=== PATIENT | male | born 1930 ===

== ENCOUNTER 2017-03-19 19:03 | Inpatient (IN) | payer MEDICARE, OTHER ==
[~2017-03-19] VITALS: Ht 170.2 cm; Wt 80.3 kg
[2017-03-19] MEDS ORDERED: LEVETIRACETAM 750 MG (19:38)
--- NOTE | 2017-03-19 20:08 | NUR ---
Patient in bed, no acute distress noted. All patient needs attended and met. call light is within reach.
--- NOTE | 2017-03-19 20:15 | NUR ---
PT PRESENTS TO ED W/ REPORTED AMS, HYPERSOMNOLENCE, AND POOR APPETITE X3 DAYS. PT FAMILY AT BEDSIDE
--- NOTE | 2017-03-19 20:24 | NUR ---
XRAY AT PT BEDSIDE
--- NOTE | 2017-03-19 20:29 | NUR ---
LAB AT PT BEDSIDE
[2017-03-19 20:53] LABS: BASOPHILS % (AUTO) 0.2 % (0.0-2.0); HEMATOCRIT 38.1 % (36.7-47.1); HEMOGLOBIN 12.9 g/dL (12.5-16.3); LYMPHOCYTES # (AUTO) 0.7 K/uL (20.0-40.0); LYMPHOCYTES % (AUTO) 7.5 % (20.5-51.5); MEAN CORPUSCULAR HEMOGLOBIN 30.7 uug (23.8-33.4); MEAN CORPUSCULAR HGB CONC 34 g/dL (32.5-36.3); MEAN CORPUSCULAR VOLUME 90.6 fL (73.0-96.2); MONOCYTES # (AUTO) 0.6 K/uL (2.0-10.0); MONOCYTES % (AUTO) 6.8 % (0.0-11.0); NEUTROPHILS # (AUTO) 8.1 K/uL (1.8-8.9); NEUTROPHILS % (AUTO) 85.5 % (38.5-71.5); PLATELET COUNT (AUTO) 148 K/uL (152-348); WHITE BLOOD COUNT (AUTO) 9.4 K/uL (3.6-10.2)
--- NOTE | 2017-03-19 20:53 | NUR ---
Patient taken to CT via gurney. No acute distress noted.
--- NOTE | 2017-03-19 20:55 | NUR ---
PT OUT OF ROOM FOR CT
[2017-03-19 20:58] LABS: CARBON DIOXIDE 30 mmol/L (21-32); CHLORIDE 103 mmol/L (98-107); CREATININE 2.1 mg/dL (0.6-1.3); GLUCOSE 109 mg/dL (74-106); POTASSIUM 4.3 mmol/L (3.5-5.1); UREA NITROGEN, BLOOD 26 mg/dL (7-18)
[2017-03-19 21:04] LABS: ALANINE AMINOTRANSFERASE 17 U/L (16-63); ALKALINE PHOSPHATASE 96 U/L (50-136); ASPARTATE AMINOTRANSFERASE 15 U/L (15-37); BILIRUBIN,DIRECT 0.2 mg/dL (0.0-0.2); BILIRUBIN,TOTAL 0.8 mg/dL (0.2-1.0); TOTAL PROTEIN, SERUM 6.8 g/dL (6.4-8.2)
[2017-03-19 21:12] LABS: THYROID STIMULATING HORMONE 0.822 mIU/mL (0.358-3.740)
--- NOTE | 2017-03-19 21:20 | NUR ---
Patient back from CT. No acute distress noted.
--- NOTE | 2017-03-19 21:50 | NUR ---
AT PT BEDSIDE
--- NOTE | 2017-03-19 21:57 | NUR ---
Belongings list complete. Son at bedside. Per ER MD, patient will be admitted peding completion of workup/evaluation
--- NOTE | 2017-03-19 22:05 | NUR ---
[facility] PAGED FOR CINDA DAWKINS. WAS TOLD TIFFANIE WILL RETURN CALL
--- NOTE | 2017-03-19 22:11 | NUR ---
ON PHONE W/ EPIC
[2017-03-19] MEDS ORDERED: ACETAMINOPHEN 325 MG TABLET PO PRN (22:15)
[2017-03-19] MEDS ORDERED: ONDANSETRON 4 MG/2 ML VIAL IV PRN (22:15)
[2017-03-19] MEDS ORDERED: MAGNESIUM HYDROXIDE 30 ML LIQUID UDC PO PRN (22:15)
[2017-03-19] MEDS ORDERED: HYDROCODONE/APAP 5-325MG TABLET PO PRN (22:15)
[2017-03-19] MEDS ORDERED: LIDOCAINE 2% (UROJET) 10 ML JELLY MM ONE ×2 (22:15→22:32)
[2017-03-19] MEDS ORDERED: Z GUARD REMEDY PASTE 57 GM TUBE TOP PRN (22:15)
--- NOTE | 2017-03-19 22:38 | NUR ---
CALLED TO GIVE REPORT. WAS TOLD RN WOULD CALL BACK
--- NOTE | 2017-03-19 22:52 | NUR ---
family contact information : Daughter- Fina [phone] Son- Michele [phone]
--- NOTE | 2017-03-19 22:55 | NUR ---
REPORT GIVEN TO AISHA GERARDO
[2017-03-19 23:20] VITALS: BP 107/43
--- NOTE | 2017-03-19 23:20 | NUR ---
Pt. admitted to [facility], under care of Dr. COLLIER. Belongs List completed
--- NOTE | 2017-03-19 23:25 | NUR ---
admit new patient to room 222, patient alert,oriented x 2, forgetful,hill cath intact drainage slightly pinkish 1100 ml out put, patient resting well, no acute distress,c/o hungry ,sandwich given,aspiration precautions observe, no swallow difficulty noted.
[2017-03-20] MEDS: IV NS 1000 ML 1,000 ML IV PRN (00:59)
[2017-03-20 04:00] VITALS: BP 98/44
--- NOTE | 2017-03-20 06:34 | NUR ---
PATIENT SLEEP WELL THROUGH THE NIGHT,BED ALARM ON SAFETY PRECAUTIONS MAINTAIN,STILL SLIGHTLY BLOODY URINE,DRAINAGE FREELY.ADEQUATE OUT PUT.
[2017-03-20 08:39] LABS: BASOPHILS % (AUTO) 0.1 % (0.0-2.0); EOSINOPHILS % (AUTO) 0.3 % (0.0-7.0); HEMATOCRIT 39.6 % (36.7-47.1); HEMOGLOBIN 13.5 g/dL (12.5-16.3); MEAN CORPUSCULAR HGB CONC 34 g/dL (32.5-36.3); MEAN CORPUSCULAR VOLUME 90.8 fL (73.0-96.2); MONOCYTES # (AUTO) 0.7 K/uL (2.0-10.0); MONOCYTES % (AUTO) 7.5 % (0.0-11.0); NEUTROPHILS # (AUTO) 7.1 K/uL (1.8-8.9); NEUTROPHILS % (AUTO) 81.1 % (38.5-71.5); PLATELET COUNT (AUTO) 137 K/uL (152-348); RED BLOOD CELL COUNT(AUTO) 4.37 MIL/uL (4.06-5.63); WHITE BLOOD COUNT (AUTO) 8.8 K/uL (3.6-10.2)
[2017-03-20 09:25] LABS: CARBON DIOXIDE 27 mmol/L (21-32); CHLORIDE 103 mmol/L (98-107); CREATININE 2.1 mg/dL (0.6-1.3); GLUCOSE 86 mg/dL (74-106); PHOSPHOROUS 2.8 mg/dL (2.5-4.9); POTASSIUM 3.3 mmol/L (3.5-5.1); UREA NITROGEN, BLOOD 26 mg/dL (7-18)
[2017-03-20] MEDS ORDERED: POTASSIUM CHLORIDE 20 MEQ TAB.PRT.SR PO ONE (10:45)
[2017-03-20 11:08] VITALS: BP 121/59
[2017-03-20 15:16] VITALS: BP 125/56
--- NOTE | 2017-03-20 19:15 | NUR ---
PT. SUDDENLY VERY AGITATED. IM=578/112 P=94 RESP=24. STATES DOES NOT KNOW WHATS WRONG..ACCU CHEK RE-DONE =175. PT. VOMITED SMALL AMT. BILE. REG. INSULIN COVERAGE NOT GIVEN. DR. PADGETT NOTIFIED OF ABOVE---NEW ORDER--ATIVAN GIVEN PER ORDER. REPORT TO NEXT SHIFT.
[2017-03-20 20:00] VITALS: BP 126/50
--- NOTE | 2017-03-20 20:00 | NUR ---
patient awake,alert, oriented x4, able to made needs known, son at bedside, bp 126/50, pulse 77,denies pain,ambulate well, Carreno cath drainage bloody urine,no clots noted, plan of care discuss with son, verbalize understanding.patient was seen by . for urology consult.
[2017-03-21 04:23] LABS: *BLOOD, URINE 3+ (NEGATIVE); *CLARITY,URINE CLOUDY (CLEAR); *COLOR,URINE RED (YELLOW); *KETONES,URINE TRACE (NEGATIVE); *UROBILINOGEN,URINE 0.2 E.U./dl (NORMAL); LEUKOCYTE ESTERASE ,URINE NEGATIVE (NEGATIVE); NITRITE, URINE NEGATIVE (NEGATIVE); PH,URINE 5.5 (5.0-8.0); UGLUCOSE NEGATIVE (NEGATIVE)
[2017-03-21 04:50] LABS: *PROTEIN,URINE 3+ (NEGATIVE)
[2017-03-21 04:51] LABS: *BILIRUBIN,URIN NEGATIVE (NEGATIVE)
[2017-03-21 04:53] LABS: BACTERIA,URINE NONE SEEN /HPF (NONE SEEN); RBC,URINE TNTC /HPF (0-3); SQUAMOUS EPITHELIAL CELL,UR NONE SEEN /HPF (NONE SEEN)
[2017-03-21] MEDS: IV NS 1000 ML 1,000 ML IV PRN (05:57)
[2017-03-21] MEDS: PANTOPRAZOLE SODIUM 40 MG TABLET.DR PO SCH (05:57)
[2017-03-21 06:00] VITALS: BP 136/64
[2017-03-21 07:07] LABS: BASOPHILS % (AUTO) 0.2 % (0.0-2.0); EOSINOPHILS # (AUTO) 0.1 K/uL (0.0-0.7); EOSINOPHILS % (AUTO) 0.7 % (0.0-7.0); HEMATOCRIT 42.1 % (36.7-47.1); HEMOGLOBIN 14.1 g/dL (12.5-16.3); LYMPHOCYTES # (AUTO) 0.7 K/uL (20.0-40.0); LYMPHOCYTES % (AUTO) 7.4 % (20.5-51.5); MEAN CORPUSCULAR HEMOGLOBIN 30.7 uug (23.8-33.4); MEAN CORPUSCULAR HGB CONC 34 g/dL (32.5-36.3); MEAN CORPUSCULAR VOLUME 91.6 fL (73.0-96.2); MONOCYTES # (AUTO) 0.7 K/uL (2.0-10.0); MONOCYTES % (AUTO) 7.9 % (0.0-11.0); NEUTROPHILS # (AUTO) 7.4 K/uL (1.8-8.9); NEUTROPHILS % (AUTO) 83.8 % (38.5-71.5); PLATELET COUNT (AUTO) 128 K/uL (152-348); WHITE BLOOD COUNT (AUTO) 8.9 K/uL (3.6-10.2)
--- NOTE | 2017-03-21 07:09 | NUR ---
RECEIVED PATIENT ASLEEP, LYING ON HIS BED ON A SEMI- BAEZ'S POSITION. EASILY AROUSED WITH NO SOB OR MOANING NOTED. WILL CONT TO MONITOR.
[2017-03-21 07:35] LABS: ALANINE AMINOTRANSFERASE 20 U/L (16-63); ALKALINE PHOSPHATASE 96 U/L (50-136); ASPARTATE AMINOTRANSFERASE 28 U/L (15-37); BILIRUBIN,TOTAL 0.8 mg/dL (0.2-1.0); CARBON DIOXIDE 29 mmol/L (21-32); CHLORIDE 105 mmol/L (98-107); CHOLESTEROL 169 mg/dL (<200); CREATININE 1.7 mg/dL (0.6-1.3); GLUCOSE 95 mg/dL (74-106); HDL CHOLESTEROL 46 mg/dL (40-60); MAGNESIUM 1.9 mg/dL (1.8-2.4); PHOSPHOROUS 2.7 mg/dL (2.5-4.9); POTASSIUM 4.3 mmol/L (3.5-5.1); TOTAL PROTEIN, SERUM 7.5 g/dL (6.4-8.2); TRIGLYCERIDES 68 MG/DL (30-150); UREA NITROGEN, BLOOD 24 mg/dL (7-18)
[2017-03-21] MEDS: ALFUZOSIN HCL 10 MG TAB.SR.24H PO SCH (09:00)
[2017-03-21 11:53] VITALS: BP 122/60
--- NOTE | 2017-03-21 12:00 | NUR ---
PATIENT AWAKE, ALERT AND ORIENTED WITH HIS FAMILY MEMBER AT BEDSIDE. NO SOB DISTRESS OR DISCOMFORTS. WILL CONTINUE TO MONITOR.
--- NOTE | 2017-03-21 15:00 | NUR ---
PATIENT AWAKE, ALERT AND ORIENTED, SITTING ON HIS CHAIR AT HIS BESIDE WITH NO SOB, DISTRESS, PATIENT DENIES ANY PAIN AT THIS TIME. ALL NEEDS WERE ATTENDED AND ANTICIPATED. ENCOURAGED PATIENT TO USE CALL LIGHT WHENEVER ASSISTANCE IS NEEDED FOR HIS SAFETY.
[2017-03-21 15:52] VITALS: BP 100/44
[2017-03-21] MEDS ORDERED: LIDOCAINE 2% (UROJET) 10 ML JELLY MM PRN (17:00)
--- NOTE | 2017-03-21 17:00 | NUR ---
PATIENT WAS SEEN AND EXAMINED BY DR. VILLA (UROLOGIST) , CHANGED PATIENT'S CATHETER TO 3 WAY F/C TO CONTINUOUSLY IRRIGATE THE BLADDER. ALSO MD HAS NEW ORDERS TO ENCOURAGE PATIENT PO LIQUIDS, CBC CHEM 7 IN AM 03/22/17. ORDERS WERE NOTED AND CARRIED OUT.
--- NOTE | 2017-03-21 18:27 | NUR ---
PATIENT AWAKE, ALERT AND ORIENTED, LYING ON BED ON A SEMI- BAEZ'S POSITION. DENIES PAIN OR DISCOMFORTS AT THIS TIME. NOTED [address] MCKENZIE CATHETER INSERTED BY DR. VILLA IS INTACT, PATENT HANG ON THE BED FRAME. STILL ON CONTINUOUS IRRIGATION. PATIENT IS TOLERATING WELL THE PROCEDURE. WILL CONTINUE TO CLOSELY MONITOR. CALL LIGHT WITHIN REACH.
[2017-03-21] MEDS ORDERED: IV D5W-0.45% NS 1000 ML BAG IV PRN (19:00)
[2017-03-21 21:00] VITALS: BP 121/54
[2017-03-21] MEDS: IV D5 1/2 NS 1000 ML 1,000 ML IV PRN (21:11)
[2017-03-21] MEDS: LEVETIRACETAM 250 MG TABLET PO SCH (21:11)
[2017-03-22 04:00] VITALS: BP 117/59
[2017-03-22 05:49] VITALS: BP 117/59
[2017-03-22] MEDS: PANTOPRAZOLE SODIUM 40 MG TABLET.DR PO SCH (06:05)
[2017-03-22] MEDS: IV D5 1/2 NS 1000 ML 1,000 ML IV PRN ×2 (06:06→17:16)
[2017-03-22 07:06] LABS: BASOPHILS % (AUTO) 0.2 % (0.0-2.0); EOSINOPHILS # (AUTO) 0.3 K/uL (0.0-0.7); EOSINOPHILS % (AUTO) 3.9 % (0.0-7.0); HEMATOCRIT 33.4 % (36.7-47.1); HEMOGLOBIN 11.3 g/dL (12.5-16.3); LYMPHOCYTES # (AUTO) 0.8 K/uL (20.0-40.0); LYMPHOCYTES % (AUTO) 12.2 % (20.5-51.5); MEAN CORPUSCULAR HEMOGLOBIN 30.9 uug (23.8-33.4); MEAN CORPUSCULAR HGB CONC 34 g/dL (32.5-36.3); MEAN CORPUSCULAR VOLUME 91.2 fL (73.0-96.2); MONOCYTES # (AUTO) 0.6 K/uL (2.0-10.0); MONOCYTES % (AUTO) 9.5 % (0.0-11.0); NEUTROPHILS # (AUTO) 4.7 K/uL (1.8-8.9); NEUTROPHILS % (AUTO) 74.2 % (38.5-71.5); PLATELET COUNT (AUTO) 96 K/uL (152-348); RED BLOOD CELL COUNT(AUTO) 3.66 MIL/uL (4.06-5.63); WHITE BLOOD COUNT (AUTO) 6.4 K/uL (3.6-10.2)
[2017-03-22 07:09] LABS: ALANINE AMINOTRANSFERASE 17 U/L (16-63); ALKALINE PHOSPHATASE 69 U/L (50-136); ASPARTATE AMINOTRANSFERASE 19 U/L (15-37); BILIRUBIN,TOTAL 0.7 mg/dL (0.2-1.0); CHLORIDE 107 mmol/L (98-107); CREATININE 1.7 mg/dL (0.6-1.3); GLUCOSE 111 mg/dL (74-106); MAGNESIUM 1.7 mg/dL (1.8-2.4); PHOSPHOROUS 2.9 mg/dL (2.5-4.9); POTASSIUM 3.5 mmol/L (3.5-5.1); TOTAL PROTEIN, SERUM 5.6 g/dL (6.4-8.2); UREA NITROGEN, BLOOD 23 mg/dL (7-18)
[2017-03-22 07:20] LABS: CARBON DIOXIDE 28 mmol/L (21-32)
[2017-03-22 08:06] LABS: *TESTOSTERONE, SERUM 408 ng/dL (264-916)
[2017-03-22] MEDS: LEVETIRACETAM 250 MG TABLET PO SCH ×2 (08:14→20:25)
[2017-03-22] MEDS: ALFUZOSIN HCL 10 MG TAB.SR.24H PO SCH (08:14)
[2017-03-22] MEDS ORDERED: MAGNESIUM SULFATE/D5W 100 ML IV SCH (09:15)
[2017-03-22 11:04] LABS: NEUTROPHILS % (MANUAL) 0 % (42-75)
[2017-03-22 12:04] VITALS: BP 105/49
--- NOTE | 2017-03-22 13:30 | NUR ---
DR. VILLA, HUNG 2L OF STERILE WATER TO IRRIGATE PT. DOCTOR VERBALIZES TO CONTINUE IRRIGATION THROUGH OUT THE DAY.
--- NOTE | 2017-03-22 14:23 | NUR ---
PT AOX4, PT REFUSES FLU VACCINE AT THIS TIME. PT REQUESTS TO HAVE FLU SHOT AT D/C.
[2017-03-22 16:00] VITALS: BP 132/49
[2017-03-22] MEDS: CEFTRIAXONE 1 G in IV DEXTROSE 5% 50 ML IV SCH (17:38)
--- NOTE | 2017-03-22 17:51 | NUR ---
PT OBSERVED EATING DINNER WITH SON AT BEDSIDE. PT IS AOX4, CALM, COOPERATIVE, BED AT LOWEST LOCKED POSITION. PT ON SEIZURE PRECAUTIONS, SIDE RAILS PADDED FOR SAFETY. PT PLAN OF CARE IS TO CONTINUE IRRIGATION OF THE BLADDER. PT GIVEN ROCEPHIN PRESCRIBED BY DOCTOR.
--- NOTE | 2017-03-22 18:19 | NUR ---
PT BLADDER WAS IRRIGATED WITH 700ML OF STERILE WATER.
[2017-03-22 19:00] VITALS: BP 120/57
--- NOTE | 2017-03-22 20:00 | NUR ---
RECEIVED PT AWAKE IN BED, HE DENIES ANY PAIN OR DISCOMFORT. PT HAS 3 WAY F/C WITH CONTINUOUS IRRIGATION OF BLADDER, DRAINAGE IS BLOOD TINGED AND PINK IN COLOR. CALL LIGHT WITHIN PT'S REACH, WILL CONTINUE TO MONITOR PT
--- NOTE | 2017-03-23 02:15 | NUR ---
REPLACED IRRIGATION SOLUTION, ONE LITRE BAG OF NS HUNG ORDERED. NO SIGNIFICANT CHANGES IN STATUS AT PRESENT, PT CONTINUES TO SLEEP WITH S/S OF PAIN OR DISTRESS
[2017-03-23 04:00] VITALS: BP 133/52
[2017-03-23] MEDS: PANTOPRAZOLE SODIUM 40 MG TABLET.DR PO SCH (06:21)
[2017-03-23] MEDS: IV D5 1/2 NS 1000 ML 1,000 ML IV PRN ×2 (06:21→17:32)
[2017-03-23 06:54] LABS: BASOPHILS % (AUTO) 0.3 % (0.0-2.0); EOSINOPHILS # (AUTO) 0.3 K/uL (0.0-0.7); EOSINOPHILS % (AUTO) 3.4 % (0.0-7.0); HEMATOCRIT 34.7 % (36.7-47.1); HEMOGLOBIN 11.6 g/dL (12.5-16.3); LYMPHOCYTES # (AUTO) 0.7 K/uL (20.0-40.0); LYMPHOCYTES % (AUTO) 9.3 % (20.5-51.5); MEAN CORPUSCULAR HEMOGLOBIN 30.4 uug (23.8-33.4); MEAN CORPUSCULAR HGB CONC 34 g/dL (32.5-36.3); MEAN CORPUSCULAR VOLUME 90.8 fL (73.0-96.2); MONOCYTES # (AUTO) 0.7 K/uL (2.0-10.0); MONOCYTES % (AUTO) 9.2 % (0.0-11.0); NEUTROPHILS % (AUTO) 77.8 % (38.5-71.5); PLATELET COUNT (AUTO) 103 K/uL (152-348); RED BLOOD CELL COUNT(AUTO) 3.82 MIL/uL (4.06-5.63); WHITE BLOOD COUNT (AUTO) 7.7 K/uL (3.6-10.2)
[2017-03-23 07:14] LABS: ALANINE AMINOTRANSFERASE 74 U/L (16-63); ALKALINE PHOSPHATASE 74 U/L (50-136); ASPARTATE AMINOTRANSFERASE 50 U/L (15-37); BILIRUBIN,TOTAL 0.5 mg/dL (0.2-1.0); CARBON DIOXIDE 29 mmol/L (21-32); CHLORIDE 108 mmol/L (98-107); CREATININE 1.5 mg/dL (0.6-1.3); GLUCOSE 103 mg/dL (74-106); MAGNESIUM 1.8 mg/dL (1.8-2.4); PHOSPHOROUS 2.8 mg/dL (2.5-4.9); POTASSIUM 3.6 mmol/L (3.5-5.1); TOTAL PROTEIN, SERUM 5.7 g/dL (6.4-8.2); UREA NITROGEN, BLOOD 18 mg/dL (7-18)
[2017-03-23 07:47] LABS: IRON, SERUM 13 ug/dL (50-175)
[2017-03-23] MEDS: ALFUZOSIN HCL 10 MG TAB.SR.24H PO SCH (08:15)
[2017-03-23] MEDS: LEVETIRACETAM 250 MG TABLET PO SCH ×2 (08:15→20:58)
[2017-03-23] MEDS ORDERED: INFLUENZA VACCINE 2017-2018 0.5 ML DISP.SYRIN IM ONE (09:00)
--- NOTE | 2017-03-23 09:31 | NUR ---
2 L STERILE WATER FOR BLADDER IRRIGATION HUNG, PRESCRIBED BY . PT MCKENZIE CATHETER OUTPUT IS 825ML AT THIS TIME.
[2017-03-23] MEDS: FERROUS SULFATE 325 MG TABEC PO SCH ×2 (10:39→20:58)
[2017-03-23 11:30] VITALS: BP 113/53
--- NOTE | 2017-03-23 13:15 | NUR ---
2 L STERILE WATER FOR IRRIGATION HUNG PRESCRIBED BY .
[2017-03-23 15:20] VITALS: BP_SYST 109; BP_SYST 113; BP_DIAS 53; BP_DIAS 54
[2017-03-23] MEDS: CEFTRIAXONE 1 G in IV DEXTROSE 5% 50 ML IV SCH (16:12)
[2017-03-23] MEDS: SULFAMETH/TRIMETH 800/160 MG TABLET PO SCH (16:21)
--- NOTE | 2017-03-23 18:20 | NUR ---
PT IS RESTING IN ROOM SITTING IN A CHAIR CALM, DOING A CROSS WORD PUZZLE. 2L OF STERILE WATER FOR IRRIGATION WAS HUNG. TOTAL VOLUME OF IRRIGATION OF NOW IS 4L. PT URINE OUTPUT IS LIGHT PINK AND MARGI IN COLOR. VISITED PT AND ASSESSED HIM. PT IV INTACT.
[2017-03-23 20:00] VITALS: BP 113/53
--- NOTE | 2017-03-23 20:00 | NUR ---
1L of sterile water hung for irrigation. Emptied catheter which has 2200ml of output.
[2017-03-24] MEDS: IV D5 1/2 NS 1000 ML 1,000 ML IV PRN (02:44)
[2017-03-24 04:00] VITALS: BP 107/53
[2017-03-24] MEDS: PANTOPRAZOLE SODIUM 40 MG TABLET.DR PO SCH (06:04)
--- NOTE | 2017-03-24 07:44 | NUR ---
RECEIVED CLIENT IN BED AWAKE, ALERT AND ORIENTED TIMES THREE, CLIENT IS IN A HIGH FOWLERS POSITION. NO APPARENT SIGNS AND SYMPTOMS OF SOB, PAIN, DISTRESS OR DISCOMFORT. STERILE WATER FOR IRRIGATION MCC 1000ML WAS CHANGED.
[2017-03-24 08:31] LABS: BASOPHILS % (AUTO) 0.2 % (0.0-2.0); EOSINOPHILS # (AUTO) 0.2 K/uL (0.0-0.7); EOSINOPHILS % (AUTO) 3.7 % (0.0-7.0); HEMOGLOBIN 11.9 g/dL (12.5-16.3); LYMPHOCYTES # (AUTO) 0.7 K/uL (20.0-40.0); LYMPHOCYTES % (AUTO) 11.9 % (20.5-51.5); MEAN CORPUSCULAR HEMOGLOBIN 30.9 uug (23.8-33.4); MEAN CORPUSCULAR HGB CONC 34 g/dL (32.5-36.3); MEAN CORPUSCULAR VOLUME 90.6 fL (73.0-96.2); MONOCYTES # (AUTO) 0.6 K/uL (2.0-10.0); MONOCYTES % (AUTO) 9.3 % (0.0-11.0); NEUTROPHILS # (AUTO) 4.7 K/uL (1.8-8.9); NEUTROPHILS % (AUTO) 74.9 % (38.5-71.5); PLATELET COUNT (AUTO) 104 K/uL (152-348); RED BLOOD CELL COUNT(AUTO) 3.86 MIL/uL (4.06-5.63); WHITE BLOOD COUNT (AUTO) 6.3 K/uL (3.6-10.2)
[2017-03-24 08:42] LABS: ALANINE AMINOTRANSFERASE 55 U/L (16-63); ALKALINE PHOSPHATASE 80 U/L (50-136); ASPARTATE AMINOTRANSFERASE 24 U/L (15-37); BILIRUBIN,TOTAL 0.5 mg/dL (0.2-1.0); CARBON DIOXIDE 28 mmol/L (21-32); CHLORIDE 108 mmol/L (98-107); CREATININE 1.6 mg/dL (0.6-1.3); GLUCOSE 103 mg/dL (74-106); MAGNESIUM 1.6 mg/dL (1.8-2.4); PHOSPHOROUS 2.9 mg/dL (2.5-4.9); POTASSIUM 3.4 mmol/L (3.5-5.1); TOTAL PROTEIN, SERUM 5.9 g/dL (6.4-8.2); UREA NITROGEN, BLOOD 18 mg/dL (7-18)
[2017-03-24] MEDS: LEVETIRACETAM 250 MG TABLET PO SCH (09:08)
[2017-03-24] MEDS: FERROUS SULFATE 325 MG TABEC PO SCH (09:08)
[2017-03-24] MEDS: SULFAMETH/TRIMETH 800/160 MG TABLET PO SCH (09:08)
[2017-03-24] MEDS: ALFUZOSIN HCL 10 MG TAB.SR.24H PO SCH (09:08)
[2017-03-24] MEDS ORDERED: MAGNESIUM SULFATE/D5W 100 ML IV SCH (11:00)
[2017-03-24] MEDS ORDERED: POTASSIUM CHLORIDE 20 MEQ TAB.PRT.SR PO ONE (11:00)
[2017-03-24 11:24] VITALS: BP 122/51
[2017-03-24] MEDS ORDERED: ALFU10TA PO (12:45)
[2017-03-24] MEDS ORDERED: LEVE250T2 PO (12:45)
[2017-03-24] MEDS ORDERED: CEPH500C2 PO (12:45)
[2017-03-24] MEDS ORDERED: LACT1CAP59 PO (12:45)
[2017-03-24] MEDS ORDERED: FERR325T28 PO (12:45)
[2017-03-24] MEDS ORDERED: ACET325T53 PO (12:45)
[2017-03-24] MEDS ORDERED: CEPHALEXIN MONOHYDRATE 500 MG CAPSULE PO SCH (14:00)
--- NOTE | 2017-03-24 14:01 | NUR ---
CLIENT IS BEING DISCHARGE TO HOME. SON IS BY BEDSIDE. CLIENT IS STABLE, NO APPARENT SIGNS AND SYMPTOMS OF PAIN, DISTRESS, DISCOMFORT, DISTRESS OR SOB. 2300 ML WERE REMOVED FROM THE MCKENZIE CATHETER BAG FROM THE CONTINUOUS IRRIGATIONS. INSTRUCTION ON DISCHARGE AND MEDICATION WERE GIVEN TO BOTH THE SON AND THE CLIENT
--- NOTE | 2017-03-24 14:40 | NUR ---
CLIENT WAS TAKEN DOWN TO LOBBY IN A WHEELCHAIR GUIDED BY HIS SON AND A CLINICAL DATA MANAGEMENT DIRECTOR. ALL PERSONAL BELONGING WITH THE CLIENT. IV LINE REMOVED AND INTACT AND THE ARM BAND WAS REMOVED. CLIENT IS LEAVING STABLE WITH NO APPARENT SIGNS AND SYMPTOMS OF SOB, PAIN, DISTRESS OR DISCOMFORT. MCKENZIE WAS REMOVED AND REPLACED WITH A LEG MCKENZIE, INSTRUCTION GIVEN TO THE SON AND CLIENT. RECOMMEND TO FOLLOW UP APPOINTMENT WITH THE UROLOGIST SOON POSSIBLE
[2017-03-26 08:10] LABS: *IMMUNOGLOBULIN G, SERUM 791 mg/dL (700-1600); IMMUNOGLOBULIN A, SERUM 290 mg/dL (61-437); IMMUNOGLOBULIN M, SERUM 37 mg/dL (15-143)
[2017-03-27 08:06] LABS: ALBUMIN 2.6 g/dL (2.9-4.4); ALPHA-1-GLOBULIN 0.3 g/dL (0.0-0.4); ALPHA-2-GLOBULIN 0.7 g/dL (0.4-1.0); BETA GLOBULIN 0.8 g/dL (0.7-1.3); GAMMA GLOBULIN 0.8 g/dL (0.4-1.8); GLOBULIN, TOTAL 2.5 g/dL (2.2-3.9); M-SPIKE Not Observed g/dL (Not Observed)
== END 2017-03-24 14:40 | disposition home or self-care (01) | DRG 682 ==
LOC: ER 19:03 → MED 23:09
PROVIDERS: ATTEND Internal Medicine
PROC: 0T9B70Z Drainage of Bladder with Drainage Device, Via Natural or Artificial Opening (ICD-10-PCS; principal; 2017-03-21)
DX: N17.9 Acute kidney failure, unspecified (principal); I62.03 Nontraumatic chronic subdural hemorrhage; E44.0 Moderate protein-calorie malnutrition; D69.6 Thrombocytopenia, unspecified; M48.02 Spinal stenosis, cervical region; N13.8 Other obstructive and reflux uropathy; E86.0 Dehydration; N39.0 Urinary tract infection, site not specified; N40.1 Benign prostatic hyperplasia with lower urinary tract symptoms; R31.0 Gross hematuria; N13.30 Unspecified hydronephrosis; G40.909 Epilepsy, unspecified, not intractable, without status epilepticus; R33.8 Other retention of urine; B96.20 Unspecified Escherichia coli [E. coli] as the cause of diseases classified elsewhere; Z16.11 Resistance to penicillins; Z79.899 Other long term (current) drug therapy; Z87.891 Personal history of nicotine dependence; M50.30 Other cervical disc degeneration, unspecified cervical region; M51.36 Other intervertebral disc degeneration, lumbar region; E87.6 Hypokalemia; K40.90 Unilateral inguinal hernia, without obstruction or gangrene, not specified as recurrent; E78.5 Hyperlipidemia, unspecified; Z68.27 Body mass index [BMI] 27.0-27.9, adult; R97.20 Elevated prostate specific antigen [PSA]; R74.0 Nonspecific elevation of levels of transaminase and lactic acid dehydrogenase [LDH]; D18.1 Lymphangioma, any site; D50.0 Iron deficiency anemia secondary to blood loss (chronic); N32.89 Other specified disorders of bladder
CPT/HCPCS: 36415; 70030-TC; 70450; 71045; 72125; 76770; 80299; 82746; 82784; 83550; 83605; 83735; 84100; 84153; 84155; 84165; 84403; 84443; 85025; 85730; 86334; 87040; 87077; 87086; 90686; 93005; A4217; A4663; J0696; J3475; J3490; J7030; J7060